=== PATIENT | female | born 1935 | race Caucasian/White ===

== ENCOUNTER 2018-05-22 12:50 | Inpatient (IN) | payer MEDICARE, OTHER ==
[~2018-05-22] VITALS: Ht 162.6 cm; Wt 74.3 kg
[~2018-05-22 12:50] MED LIST: ASPI81 PO; FOLI1 PO; LEVO500 PO; MULT-29 PO; Paroxetine Hcl PO; THIA100T67 PO
[2018-05-22] MEDS ORDERED: FAMO20 PO (13:52)
[2018-05-22] MEDS ORDERED: AMLO-512 PO (13:52)
[2018-05-22] MEDS ORDERED: DIVA125T32 PO (13:52)
[2018-05-22] MEDS ORDERED: METO25XL PO (13:52)
[2018-05-22] MEDS ORDERED: CITA10TA68 PO (13:52)
[2018-05-22] MEDS ORDERED: ATOR40TA28 PO (13:52)
[2018-05-22] MEDS ORDERED: ISOS60TA4 PO (13:52)
[2018-05-22] MEDS ORDERED: ACETAMINOPHEN 325 MG TABLET PO PRN (14:00)
[2018-05-22] MEDS ORDERED: CefTRIAXone SODIUM 1 GM in DEXTROSE 5%-WATER 10 ML IV ONE (14:00)
[2018-05-22] MEDS ORDERED: ONDANSETRON HCL 4 MG/2 ML VIAL IVP PRN ×2 (14:00→16:45)
[2018-05-22] MEDS ORDERED: 0.9% SODIUM CHLORIDE 10 ML SYRINGE IVP PRN (14:00)
[2018-05-22 15:35] LABS: CALCIUM, TOTAL 8.8 mg/dL (8.8-10.5); CREATININE 0.99 mg/dL (0.60-1.30); POTASSIUM 3.2 mmol/L (3.5-5.1)
[2018-05-22 15:41] LABS: ALBUMIN 2.6 g/dL (3.4-5.0); BILIRUBIN,TOTAL 0.5 mg/dL (0.1-1.0); TOTAL PROTEIN, SERUM 7.7 g/dL (6.4-8.2)
[2018-05-22] MEDS ORDERED: POTASSIUM CHLORIDE 10% 40 MEQ/30 ML LIQUID UDCUP PO ONE (16:00)
[2018-05-22] MEDS ORDERED: ASPIRIN 325 MG TABLET PO ONE (16:15)
[2018-05-22] MEDS ORDERED: IPRATROPIUM BROMIDE 0.5 MG/2.5 ML NEB SOLUTION NEB ONE (16:15)
[2018-05-22] MEDS ORDERED: SODIUM CHLORIDE 0.9% 1,000 ML IV ONE ×2 (16:15→16:45)
[2018-05-22] MEDS ORDERED: ALBUTEROL SULFATE 2.5 MG/0.5 ML NEB SOLUTION NEB ONE (16:15)
[2018-05-22 16:35] LABS: APPEARANCE,URINE CLOUDY (CLEAR); BILIRUBIN,URINE NEGATIVE (NEGATIVE); GLUCOSE, URINE (UA) NEGATIVE (NEGATIVE); KETONES,URINE TRACE mg/dL (NEGATIVE); LEUKOCYTE ESTERASE ,URINE NEGATIVE (NEGATIVE); NITRATE,URINE NEGATIVE (NEGATIVE); OCCULT BLOOD,URINE NEGATIVE (NEGATIVE); PROTEIN,URINE NEGATIVE (NEGATIVE)
[2018-05-22] MEDS ORDERED: ZOLPIDEM TARTRATE 5 MG TABLET PO PRN (16:45)
[2018-05-22] MEDS ORDERED: BISACODYL 10 MG RECTAL RECTAL SUPPOSITORY PR PRN (16:45)
[2018-05-22] MEDS ORDERED: MORPHINE SULFATE 2 MG/ML SYRINGE IVP PRN (16:45)
[2018-05-22] MEDS ORDERED: MAGNESIUM HYDROXIDE SUSPENSION 30 ML UDCUP PO PRN (16:45)
[2018-05-22 16:52] LABS: AMORPHOUS SEDIMENT,UR Moderate /LPF (None Seen); BACTERIA,URINE Few /HPF (None Seen); RBC,URINE 0-2 /HPF (0-2); SQUAMOUS EPITHELIAL CELL,UR Few /LPF (None Seen); WBC,URINE 0-2 /HPF (0-5)
[2018-05-22 17:16] LABS: BASOPHILS % (AUTO) 0.3 % (0.0-2.0); EOSINOPHILS % (AUTO) 1.4 % (1.0-6.0); HEMATOCRIT 32.7 % (36-46); HEMOGLOBIN 11.1 g/dL (12.0-16.0); LYMPHOCYTES % (AUTO) 20.9 % (22.0-44.0); MEAN CORPUSCULAR HEMOGLOBIN 31.2 pg (26.0-34.0); MEAN CORPUSCULAR VOLUME 92 fL (80-100); MONOCYTES # (AUTO) 1.6 K/uL (0.1-1.0); MONOCYTES % (AUTO) 16.9 % (2.0-9.0); NEUTROPHILS # (AUTO) 5.9 K/uL (1.8-7.7); NEUTROPHILS % (AUTO) 60.5 % (40.0-70.0); PLATELET COUNT (AUTO) 230 K/uL (150-450); RED BLOOD CELL COUNT(AUTO) 3.57 MIL/uL (4.00-5.20); RED CELL DISTRIBUTION WIDTH 15.3 % (11.5-14.5)
[2018-05-22 17:18] VITALS: BP 103/73
[2018-05-22] MEDS: AZITHROMYCIN 500 MG/NS 250 ML IV SCH (19:04)
[2018-05-22 19:20] VITALS: BP 101/71
[2018-05-22] MEDS: DOCUSATE SODIUM 100 MG CAPSULE PO SCH (20:14)
[2018-05-22] MEDS: THIAMINE HCL 100 MG TABLET PO SCH (20:15)
[2018-05-22] MEDS: DIVALPROEX SODIUM 125 MG DR TABLET PO SCH (20:15)
[2018-05-22] MEDS: HYDROCODONE/ACETAMINOPHEN 5-325 MG TABLET PO PRN (20:15)
[2018-05-23 00:07] VITALS: BP 96/59
[2018-05-23 04:30] VITALS: BP 110/73
[2018-05-23] MEDS: HYDROCODONE/ACETAMINOPHEN 5-325 MG TABLET PO PRN ×2 (06:10→20:39)
[2018-05-23 07:37] VITALS: BP 111/72
[2018-05-23] MEDS: THIAMINE HCL 100 MG TABLET PO SCH ×2 (07:41→20:39)
[2018-05-23] MEDS: AmLODIPine BESYLATE 10 MG TABLET PO SCH (07:41)
[2018-05-23] MEDS: HEPARIN SODIUM,PORCINE 5,000 UNITS/ML VIAL SQ SCH ×3 (07:41→16:00)
[2018-05-23] MEDS: PANTOPRAZOLE SODIUM 40 MG DR TABLET PO SCH (07:41)
[2018-05-23] MEDS: ATORVASTATIN CALCIUM 40 MG TABLET PO SCH (07:41)
[2018-05-23] MEDS: ASPIRIN 81 MG CHEWABLE TABLET PO SCH (07:41)
[2018-05-23] MEDS: CITALOPRAM HYDROBROMIDE 10 MG TABLET PO SCH (07:42)
[2018-05-23] MEDS: DIVALPROEX SODIUM 125 MG DR TABLET PO SCH ×2 (07:42→20:39)
[2018-05-23] MEDS: DOCUSATE SODIUM 100 MG CAPSULE PO SCH ×2 (07:42→20:39)
[2018-05-23] MEDS: ISOSORBIDE MONONITRATE 60 MG ER TABLET PO SCH (07:42)
[2018-05-23] MEDS ORDERED: POTASSIUM CHLORIDE 20 MEQ ER TABLET PO PRN (08:15)
[2018-05-23] MEDS ORDERED: POTASSIUM CHL 10 MEQ/WATER 50 ML IV PRN (08:15)
[2018-05-23 08:50] LABS: BASOPHILS % (AUTO) 0.3 % (0.0-2.0); EOSINOPHILS % (AUTO) 1.4 % (1.0-6.0); HEMATOCRIT 33.3 % (36-46); HEMOGLOBIN 11.3 g/dL (12.0-16.0); LYMPHOCYTES # (AUTO) 1.3 K/uL (1.0-4.8); LYMPHOCYTES % (AUTO) 12.6 % (22.0-44.0); MEAN CORPUSCULAR HEMOGLOBIN 31.4 pg (26.0-34.0); MEAN CORPUSCULAR VOLUME 92 fL (80-100); MONOCYTES # (AUTO) 1.2 K/uL (0.1-1.0); MONOCYTES % (AUTO) 12.1 % (2.0-9.0); NEUTROPHILS # (AUTO) 7.5 K/uL (1.8-7.7); NEUTROPHILS % (AUTO) 73.6 % (40.0-70.0); PLATELET COUNT (AUTO) 243 K/uL (150-450); RED BLOOD CELL COUNT(AUTO) 3.61 MIL/uL (4.00-5.20); RED CELL DISTRIBUTION WIDTH 15.3 % (11.5-14.5)
[2018-05-23] MEDS ORDERED: METOPROLOL SUCCINATE 25 MG ER TABLET PO SCH (09:00)
[2018-05-23 10:12] LABS: ANION GAP 10 mmol/L (8-16); CALCIUM, TOTAL 8.3 mg/dL (8.8-10.5); CARBON DIOXIDE 24 mmol/L (22-29); CHLORIDE 102 mmol/L (98-107); CREATININE 0.86 mg/dL (0.60-1.30); GLUCOSE,RANDOM 107 mg/dL (70-110); SODIUM SERUM 136 mmol/L (136-145); UREA NITROGEN, BLOOD 7 mg/dL (7-18)
[2018-05-23 10:15] LABS: GLOMERULAR FILTR. RATE CALC > 60 mL/min (>60)
[2018-05-23] MEDS: APIXABAN 2.5 MG TABLET PO SCH ×2 (10:57→20:39)
[2018-05-23] MEDS: METOPROLOL SUCCINATE 25 MG ER TABLET PO SCH ×2 (10:57→20:39)
[2018-05-23 11:27] VITALS: BP 98/63
[2018-05-23 15:16] VITALS: BP 117/64
[2018-05-23] MEDS: CefTRIAXone SODIUM 1 GM in DEXTROSE 5%-WATER 10 ML IV SCH (15:30)
[2018-05-23] MEDS ORDERED: ALBUTEROL SULFATE 2.5 MG/0.5 ML NEB SOLUTION NEB PRN (15:30)
[2018-05-23] MEDS ORDERED: IPRATROPIUM BROMIDE 0.5 MG/2.5 ML NEB SOLUTION NEB PRN (15:30)
[2018-05-23] MEDS ORDERED: SODIUM CHLORIDE 0.9% 250 ML IV ONE (17:07)
[2018-05-23] MEDS: AZITHROMYCIN 500 MG/NS 250 ML IV SCH (17:10)
[2018-05-23] MEDS: GuaiFENesin [SUGAR-FREE] 200 MG/10 ML SOLUTION UDCUP PO PRN (17:10)
[2018-05-23] MEDS ORDERED: GuaiFENesin [SUGAR-FREE] 200 MG/10 ML SOLUTION UDCUP PO PRN (18:00)
[2018-05-23] MEDS ORDERED: GuaiFENesin [SUGAR-FREE] 200 MG/10 ML SOLUTION UDCUP PO SCH (18:00)
[2018-05-23 19:35] VITALS: BP 131/54
[2018-05-24 00:41] VITALS: BP 130/78
[2018-05-24] MEDS: GuaiFENesin [SUGAR-FREE] 200 MG/10 ML SOLUTION UDCUP PO PRN ×4 (02:04→21:54)
[2018-05-24 06:00] VITALS: BP 129/75
[2018-05-24 06:52] LABS: BASOPHILS % (AUTO) 0.3 % (0.0-2.0); EOSINOPHILS % (AUTO) 1.6 % (1.0-6.0); HEMOGLOBIN 11.3 g/dL (12.0-16.0); LYMPHOCYTES # (AUTO) 1.6 K/uL (1.0-4.8); LYMPHOCYTES % (AUTO) 18.2 % (22.0-44.0); MEAN CORPUSCULAR HEMOGLOBIN 31.2 pg (26.0-34.0); MEAN CORPUSCULAR HGB CONC 34.1 G/dL (31.0-37.0); MEAN CORPUSCULAR VOLUME 92 fL (80-100); MONOCYTES # (AUTO) 1.3 K/uL (0.1-1.0); MONOCYTES % (AUTO) 14.9 % (2.0-9.0); NEUTROPHILS # (AUTO) 5.8 K/uL (1.8-7.7); PLATELET COUNT (AUTO) 253 K/uL (150-450); RED CELL DISTRIBUTION WIDTH 14.9 % (11.5-14.5)
[2018-05-24 07:09] LABS: ALANINE AMINOTRANSFERASE 20 U/L (12-78); ALBUMIN 2.1 g/dL (3.4-5.0); ALKALINE PHOSPHATASE 61 U/L (46-116); ANION GAP 11 mmol/L (8-16); ASPARTATE AMINOTRANSFERASE 22 U/L (15-37); BILIRUBIN,TOTAL 0.5 mg/dL (0.1-1.0); CALCIUM, TOTAL 8.3 mg/dL (8.8-10.5); CARBON DIOXIDE 24 mmol/L (22-29); CHLORIDE 102 mmol/L (98-107); CREATININE 0.79 mg/dL (0.60-1.30); GLUCOSE,RANDOM 89 mg/dL (70-110); POTASSIUM 3.7 mmol/L (3.5-5.1); SODIUM SERUM 137 mmol/L (136-145); TOTAL PROTEIN, SERUM 7.1 g/dL (6.4-8.2); UREA NITROGEN, BLOOD 5 mg/dL (7-18)
[2018-05-24 07:32] LABS: GLOMERULAR FILTR. RATE CALC > 60 mL/min (>60)
[2018-05-24] MEDS: AmLODIPine BESYLATE 10 MG TABLET PO SCH (07:32)
[2018-05-24] MEDS: METOPROLOL SUCCINATE 25 MG ER TABLET PO SCH ×2 (07:32→21:49)
[2018-05-24] MEDS: ASPIRIN 81 MG CHEWABLE TABLET PO SCH (07:32)
[2018-05-24] MEDS: ATORVASTATIN CALCIUM 40 MG TABLET PO SCH (07:32)
[2018-05-24] MEDS: HEPARIN SODIUM,PORCINE 5,000 UNITS/ML VIAL SQ SCH ×3 (07:32→16:00)
[2018-05-24] MEDS: PANTOPRAZOLE SODIUM 40 MG DR TABLET PO SCH (07:33)
[2018-05-24] MEDS: DOCUSATE SODIUM 100 MG CAPSULE PO SCH ×2 (07:33→21:49)
[2018-05-24] MEDS: ISOSORBIDE MONONITRATE 60 MG ER TABLET PO SCH (07:33)
[2018-05-24] MEDS: DIVALPROEX SODIUM 125 MG DR TABLET PO SCH ×2 (07:34→21:49)
[2018-05-24] MEDS: APIXABAN 2.5 MG TABLET PO SCH ×2 (07:34→21:49)
[2018-05-24] MEDS: CITALOPRAM HYDROBROMIDE 10 MG TABLET PO SCH (07:34)
[2018-05-24] MEDS: THIAMINE HCL 100 MG TABLET PO SCH ×2 (07:35→21:49)
[2018-05-24 07:49] VITALS: BP 134/63
[2018-05-24 11:37] VITALS: BP 99/63
[2018-05-24 16:15] VITALS: BP 110/84
[2018-05-24] MEDS: CefTRIAXone SODIUM 1 GM in DEXTROSE 5%-WATER 10 ML IV SCH (16:27)
[2018-05-24] MEDS: AZITHROMYCIN 500 MG/NS 250 ML IV SCH (16:27)
[2018-05-24 20:16] VITALS: BP 121/66
[2018-05-25 00:04] VITALS: BP 114/63
[2018-05-25] MEDS: HEPARIN SODIUM,PORCINE 5,000 UNITS/ML VIAL SQ SCH ×4 (00:12→23:43)
[2018-05-25 04:44] VITALS: BP 118/79
[2018-05-25 07:17] VITALS: BP 109/59
[2018-05-25 09:01] LABS: BASOPHILS % (AUTO) 0.4 % (0.0-2.0); EOSINOPHILS % (AUTO) 1.2 % (1.0-6.0); HEMATOCRIT 33.7 % (36-46); HEMOGLOBIN 11.5 g/dL (12.0-16.0); LYMPHOCYTES # (AUTO) 1.5 K/uL (1.0-4.8); LYMPHOCYTES % (AUTO) 16.1 % (22.0-44.0); MEAN CORPUSCULAR HEMOGLOBIN 30.9 pg (26.0-34.0); MEAN CORPUSCULAR VOLUME 91 fL (80-100); MONOCYTES # (AUTO) 1.2 K/uL (0.1-1.0); MONOCYTES % (AUTO) 12.6 % (2.0-9.0); NEUTROPHILS # (AUTO) 6.4 K/uL (1.8-7.7); NEUTROPHILS % (AUTO) 69.7 % (40.0-70.0); PLATELET COUNT (AUTO) 272 K/uL (150-450); RED BLOOD CELL COUNT(AUTO) 3.71 MIL/uL (4.00-5.20); RED CELL DISTRIBUTION WIDTH 15.3 % (11.5-14.5)
[2018-05-25 09:13] LABS: ALANINE AMINOTRANSFERASE 20 U/L (12-78); ALBUMIN 2.2 g/dL (3.4-5.0); ALKALINE PHOSPHATASE 64 U/L (46-116); ANION GAP 9 mmol/L (8-16); ASPARTATE AMINOTRANSFERASE 21 U/L (15-37); BILIRUBIN,TOTAL 0.3 mg/dL (0.1-1.0); CALCIUM, TOTAL 8.5 mg/dL (8.8-10.5); CARBON DIOXIDE 26 mmol/L (22-29); CHLORIDE 104 mmol/L (98-107); CREATININE 0.87 mg/dL (0.60-1.30); GLOMERULAR FILTR. RATE CALC > 60 mL/min (>60); GLUCOSE,RANDOM 101 mg/dL (70-110); POTASSIUM 3.8 mmol/L (3.5-5.1); SODIUM SERUM 139 mmol/L (136-145); TOTAL PROTEIN, SERUM 7.2 g/dL (6.4-8.2); UREA NITROGEN, BLOOD 6 mg/dL (7-18)
[2018-05-25] MEDS: GuaiFENesin [SUGAR-FREE] 200 MG/10 ML SOLUTION UDCUP PO PRN ×2 (09:55→21:09)
[2018-05-25] MEDS: CITALOPRAM HYDROBROMIDE 10 MG TABLET PO SCH (09:55)
[2018-05-25] MEDS: ISOSORBIDE MONONITRATE 60 MG ER TABLET PO SCH (09:55)
[2018-05-25] MEDS: DOCUSATE SODIUM 100 MG CAPSULE PO SCH ×2 (09:55→21:00)
[2018-05-25] MEDS: DIVALPROEX SODIUM 125 MG DR TABLET PO SCH ×2 (09:56→21:04)
[2018-05-25] MEDS: ATORVASTATIN CALCIUM 40 MG TABLET PO SCH (09:56)
[2018-05-25] MEDS: ASPIRIN 81 MG CHEWABLE TABLET PO SCH (09:56)
[2018-05-25] MEDS: APIXABAN 2.5 MG TABLET PO SCH ×2 (09:56→21:04)
[2018-05-25] MEDS: THIAMINE HCL 100 MG TABLET PO SCH ×2 (09:56→21:05)
[2018-05-25] MEDS: PANTOPRAZOLE SODIUM 40 MG DR TABLET PO SCH (09:56)
[2018-05-25] MEDS: METOPROLOL SUCCINATE 25 MG ER TABLET PO SCH ×2 (09:57→21:05)
[2018-05-25 11:10] VITALS: BP 106/61
[2018-05-25] MEDS: AmLODIPine BESYLATE 10 MG TABLET PO SCH (11:11)
[2018-05-25] MEDS ORDERED: SODIUM CHLORIDE 0.9% 250 ML IV ONE (14:47)
[2018-05-25] MEDS: CefTRIAXone SODIUM 1 GM in DEXTROSE 5%-WATER 10 ML IV SCH (15:00)
[2018-05-25 16:13] VITALS: BP 102/80
[2018-05-25] MEDS: AZITHROMYCIN 500 MG/NS 250 ML IV SCH (16:35)
[2018-05-25 19:13] VITALS: BP 109/76
[2018-05-26 00:22] VITALS: BP 114/68
[2018-05-26 04:17] VITALS: BP 113/70
[2018-05-26 07:52] VITALS: BP 141/81
[2018-05-26] MEDS: METOPROLOL SUCCINATE 25 MG ER TABLET PO SCH ×2 (08:47→20:48)
[2018-05-26] MEDS: AmLODIPine BESYLATE 10 MG TABLET PO SCH (08:47)
[2018-05-26] MEDS: PANTOPRAZOLE SODIUM 40 MG DR TABLET PO SCH (08:48)
[2018-05-26] MEDS: ISOSORBIDE MONONITRATE 60 MG ER TABLET PO SCH (08:48)
[2018-05-26] MEDS: DOCUSATE SODIUM 100 MG CAPSULE PO SCH ×2 (08:48→20:43)
[2018-05-26] MEDS: ATORVASTATIN CALCIUM 40 MG TABLET PO SCH (08:48)
[2018-05-26] MEDS: ASPIRIN 81 MG CHEWABLE TABLET PO SCH (08:48)
[2018-05-26] MEDS: APIXABAN 2.5 MG TABLET PO SCH ×2 (08:48→20:48)
[2018-05-26] MEDS: THIAMINE HCL 100 MG TABLET PO SCH ×2 (08:48→20:48)
[2018-05-26] MEDS: CITALOPRAM HYDROBROMIDE 10 MG TABLET PO SCH (08:48)
[2018-05-26] MEDS: DIVALPROEX SODIUM 125 MG DR TABLET PO SCH ×2 (08:49→20:48)
[2018-05-26] MEDS: HEPARIN SODIUM,PORCINE 5,000 UNITS/ML VIAL SQ SCH ×2 (08:49→15:52)
[2018-05-26 11:32] VITALS: BP 105/74
[2018-05-26] MEDS: ACETAMINOPHEN 325 MG TABLET PO PRN (13:33)
[2018-05-26] MEDS ORDERED: METOPROLOL SUCCINATE 25 MG ER TABLET PO ONE (15:15)
[2018-05-26 15:18] VITALS: BP 107/75
[2018-05-26] MEDS: CefTRIAXone SODIUM 1 GM in DEXTROSE 5%-WATER 10 ML IV SCH (15:52)
[2018-05-26] MEDS: AZITHROMYCIN 500 MG/NS 250 ML IV SCH (15:52)
[2018-05-26] MEDS: GuaiFENesin [SUGAR-FREE] 200 MG/10 ML SOLUTION UDCUP PO PRN (15:52)
[2018-05-26] MEDS: DIGOXIN 250 MCG/ML 2 ML AMP IVP SCH (17:58)
[2018-05-27] VITALS (7 sets, daily range): BP systolic 100–122; BP diastolic 54–70
[2018-05-27] MEDS: HEPARIN SODIUM,PORCINE 5,000 UNITS/ML VIAL SQ SCH ×3 (00:01→15:26)
[2018-05-27] MEDS: DIGOXIN 250 MCG/ML 2 ML AMP IVP SCH ×3 (00:01→12:40)
[2018-05-27] MEDS: GuaiFENesin [SUGAR-FREE] 200 MG/10 ML SOLUTION UDCUP PO PRN (06:00)
[2018-05-27] MEDS: DOCUSATE SODIUM 100 MG CAPSULE PO SCH ×2 (08:04→21:00)
[2018-05-27] MEDS: ASPIRIN 81 MG CHEWABLE TABLET PO SCH (08:23)
[2018-05-27] MEDS: CITALOPRAM HYDROBROMIDE 10 MG TABLET PO SCH (08:24)
[2018-05-27] MEDS: DIVALPROEX SODIUM 125 MG DR TABLET PO SCH ×2 (08:24→21:02)
[2018-05-27] MEDS: METOPROLOL SUCCINATE 25 MG ER TABLET PO SCH ×2 (08:24→20:47)
[2018-05-27] MEDS: THIAMINE HCL 100 MG TABLET PO SCH ×2 (08:24→20:48)
[2018-05-27] MEDS: PANTOPRAZOLE SODIUM 40 MG DR TABLET PO SCH (08:24)
[2018-05-27] MEDS: ATORVASTATIN CALCIUM 40 MG TABLET PO SCH (08:24)
[2018-05-27] MEDS: AmLODIPine BESYLATE 10 MG TABLET PO SCH (08:24)
[2018-05-27] MEDS: APIXABAN 2.5 MG TABLET PO SCH ×2 (08:25→20:47)
[2018-05-27] MEDS: ISOSORBIDE MONONITRATE 60 MG ER TABLET PO SCH (08:25)
[2018-05-27 09:41] LABS: ALBUMIN 2.3 g/dL (3.4-5.0); BILIRUBIN,TOTAL 0.4 mg/dL (0.1-1.0); CALCIUM, TOTAL 8.7 mg/dL (8.8-10.5); CREATININE 0.98 mg/dL (0.60-1.30); POTASSIUM 3.5 mmol/L (3.5-5.1); TOTAL PROTEIN, SERUM 7.6 g/dL (6.4-8.2)
[2018-05-27] MEDS: ACETAMINOPHEN 325 MG TABLET PO PRN ×2 (15:26→21:36)
[2018-05-27] MEDS: CefTRIAXone SODIUM 1 GM in DEXTROSE 5%-WATER 10 ML IV SCH (15:27)
[2018-05-27] MEDS: AZITHROMYCIN 500 MG/NS 250 ML IV SCH (16:41)
[2018-05-28] VITALS (7 sets, daily range): BP systolic 95–125; BP diastolic 57–73
[2018-05-28] MEDS: HEPARIN SODIUM,PORCINE 5,000 UNITS/ML VIAL SQ SCH ×3 (00:23→15:12)
[2018-05-28] MEDS: ATORVASTATIN CALCIUM 40 MG TABLET PO SCH (08:57)
[2018-05-28] MEDS: ISOSORBIDE MONONITRATE 60 MG ER TABLET PO SCH (08:57)
[2018-05-28] MEDS: AmLODIPine BESYLATE 10 MG TABLET PO SCH (08:57)
[2018-05-28] MEDS: ASPIRIN 81 MG CHEWABLE TABLET PO SCH (08:58)
[2018-05-28] MEDS: PANTOPRAZOLE SODIUM 40 MG DR TABLET PO SCH (08:58)
[2018-05-28] MEDS: THIAMINE HCL 100 MG TABLET PO SCH ×2 (08:58→20:03)
[2018-05-28] MEDS: DIVALPROEX SODIUM 125 MG DR TABLET PO SCH ×2 (08:58→20:02)
[2018-05-28] MEDS: METOPROLOL SUCCINATE 25 MG ER TABLET PO SCH ×2 (08:58→20:03)
[2018-05-28] MEDS: APIXABAN 2.5 MG TABLET PO SCH ×2 (08:58→20:02)
[2018-05-28] MEDS: CITALOPRAM HYDROBROMIDE 10 MG TABLET PO SCH (08:59)
[2018-05-28] MEDS: DOCUSATE SODIUM 100 MG CAPSULE PO SCH ×2 (09:00→20:02)
[2018-05-28] MEDS: GuaiFENesin [SUGAR-FREE] 200 MG/10 ML SOLUTION UDCUP PO PRN (15:12)
[2018-05-28] MEDS: CefTRIAXone SODIUM 1 GM in DEXTROSE 5%-WATER 10 ML IV SCH (15:13)
[2018-05-28] MEDS: AZITHROMYCIN 500 MG/NS 250 ML IV SCH (16:11)
[2018-05-28] MEDS: ACETAMINOPHEN 325 MG TABLET PO PRN (20:04)
[2018-05-29] MEDS: HEPARIN SODIUM,PORCINE 5,000 UNITS/ML VIAL SQ SCH ×2 (02:09→08:30)
[2018-05-29 04:39] VITALS: BP 117/62
[2018-05-29 07:15] VITALS: BP 123/67
[2018-05-29] MEDS: AmLODIPine BESYLATE 10 MG TABLET PO SCH (08:30)
[2018-05-29] MEDS: METOPROLOL SUCCINATE 25 MG ER TABLET PO SCH (08:30)
[2018-05-29] MEDS: ATORVASTATIN CALCIUM 40 MG TABLET PO SCH (08:30)
[2018-05-29] MEDS: DIVALPROEX SODIUM 125 MG DR TABLET PO SCH (08:30)
[2018-05-29] MEDS: PANTOPRAZOLE SODIUM 40 MG DR TABLET PO SCH (08:30)
[2018-05-29] MEDS: ASPIRIN 81 MG CHEWABLE TABLET PO SCH (08:30)
[2018-05-29] MEDS: CITALOPRAM HYDROBROMIDE 10 MG TABLET PO SCH (08:31)
[2018-05-29] MEDS: THIAMINE HCL 100 MG TABLET PO SCH (08:31)
[2018-05-29] MEDS: DOCUSATE SODIUM 100 MG CAPSULE PO SCH (08:31)
[2018-05-29] MEDS: APIXABAN 2.5 MG TABLET PO SCH (08:31)
[2018-05-29] MEDS: ISOSORBIDE MONONITRATE 60 MG ER TABLET PO SCH (08:32)
[2018-05-29] MEDS: GuaiFENesin [SUGAR-FREE] 200 MG/10 ML SOLUTION UDCUP PO PRN (08:35)
[2018-05-29] MEDS: ACETAMINOPHEN 325 MG TABLET PO PRN (11:22)
[2018-05-29 11:44] VITALS: BP 115/65
[2018-05-29 16:15] VITALS: BP 111/63
== END 2018-05-29 17:00 | DRG 193 ==
LOC: EMS 12:51 → UNDOADMIN 15:49 → 5S 15:49 → EMS 17:20
PROVIDERS: ADMIT Internal Medicine; ATTEND Internal Medicine
DX: J18.9 Pneumonia, unspecified organism (principal); J96.00 Acute respiratory failure, unspecified whether with hypoxia or hypercapnia; E87.1 Hypo-osmolality and hyponatremia; I50.30 Unspecified diastolic (congestive) heart failure; I48.92 Unspecified atrial flutter; I48.91 Unspecified atrial fibrillation; F25.9 Schizoaffective disorder, unspecified; I11.0 Hypertensive heart disease with heart failure; E87.6 Hypokalemia; D64.9 Anemia, unspecified; Z88.8 Allergy status to other drugs, medicaments and biological substances; Z91.018 Allergy to other foods
CPT/HCPCS: 51701; 83735; 87040; 87081; 93005; 93306; 96365; 99285; J0456; J0696; J1160; J1644; J2405; J7050; J7060

== ENCOUNTER 2018-09-27 14:51 | Emergency (ER) | payer MEDICARE, OTHER ==
[~2018-09-27] VITALS: Ht 160 cm; Wt 90.9 kg
[~2018-09-27 14:51] MED LIST changes: +AMLO-512 PO; +ATOR40TA28 PO; +CITA10TA68 PO; +DIVA125T32 PO; +FAMO20 PO; +ISOS60TA4 PO; -LEVO500 PO; +METO25XL PO; -MULT-29 PO; -Paroxetine Hcl PO
[2018-09-27] MEDS ORDERED: PANT40TA25 PO (15:55)
[2018-09-27] MEDS ORDERED: APIX2.5T PO (15:55)
[2018-09-27] MEDS ORDERED: LORazepam 2 MG/ML VIAL IM ONE (16:00)
[2018-09-27] MEDS ORDERED: HALOPERIDOL LACTATE 5 MG/ML VIAL IM ONE (16:00)
[2018-09-27] MEDS ORDERED: DiphenhydrAMINE HCL 50 MG/ML VIAL IM ONE (16:00)
[2018-09-27 17:45] LABS: EOSINOPHILS % (AUTO) 0.5 % (1.0-6.0); HEMATOCRIT 34.7 % (36-46); HEMOGLOBIN 11.8 g/dL (12.0-16.0); LYMPHOCYTES # (AUTO) 2.1 K/uL (1.0-4.8); MEAN CORPUSCULAR HEMOGLOBIN 32.1 pg (26.0-34.0); MEAN CORPUSCULAR HGB CONC 33.8 G/dL (31.0-37.0); MEAN CORPUSCULAR VOLUME 95 fL (80-100); MONOCYTES # (AUTO) 1.2 K/uL (0.1-1.0); MONOCYTES % (AUTO) 14.9 % (2.0-9.0); NEUTROPHILS # (AUTO) 4.6 K/uL (1.8-7.7); NEUTROPHILS % (AUTO) 57.6 % (40.0-70.0); PLATELET COUNT (AUTO) 220 K/uL (150-450); RED BLOOD CELL COUNT(AUTO) 3.66 MIL/uL (4.00-5.20); RED CELL DISTRIBUTION WIDTH 15.8 % (11.5-14.5)
[2018-09-27 18:17] LABS: ANION GAP 8 mmol/L (8-16); CALCIUM, TOTAL 9.2 mg/dL (8.8-10.5); CARBON DIOXIDE 30 mmol/L (22-29); CHLORIDE 102 mmol/L (98-107); CREATININE 1.01 mg/dL (0.60-1.30); GLOMERULAR FILTR. RATE CALC 52 mL/min (>60); GLUCOSE,RANDOM 129 mg/dL (70-110); POTASSIUM 3.7 mmol/L (3.5-5.1); SODIUM SERUM 140 mmol/L (136-145); UREA NITROGEN, BLOOD 7 mg/dL (7-18)
[2018-09-27 18:23] LABS: ALANINE AMINOTRANSFERASE 16 U/L (12-78); ALKALINE PHOSPHATASE 55 U/L (46-116); ASPARTATE AMINOTRANSFERASE 17 U/L (15-37); BILIRUBIN,TOTAL 0.3 mg/dL (0.1-1.0); TOTAL PROTEIN, SERUM 6.9 g/dL (6.4-8.2)
[2018-09-27 18:34] LABS: APPEARANCE,URINE CLOUDY (CLEAR); BILIRUBIN,URINE NEGATIVE (NEGATIVE); GLUCOSE, URINE (UA) NEGATIVE (NEGATIVE); KETONES,URINE NEGATIVE (NEGATIVE); LEUKOCYTE ESTERASE ,URINE LARGE (NEGATIVE); NITRATE,URINE NEGATIVE (NEGATIVE); OCCULT BLOOD,URINE TRACE (NEGATIVE); PH,URINE 6.5 (5.0-8.0); PROTEIN,URINE NEGATIVE (NEGATIVE); UROBILINOGEN,URINE 0.2 mg/dL (<=1.0)
[2018-09-27 18:44] LABS: AMPHET/METH SCREEN,URINE NEGATIVE (NEGATIVE); BARBITURATE SCREEN, URINE NEGATIVE (NEGATIVE); BENZODIAZEPINES SCREEN,URINE NEGATIVE (NEGATIVE); CANNABINOID SCREEN,URINE NEGATIVE (NEGATIVE); COCAINE SCREEN,URINE NEGATIVE (NEGATIVE); METHADONE SCREEN, URINE NEGATIVE (NEGATIVE); OPIATE SCREEN,URINE NEGATIVE (NEGATIVE)
[2018-09-27 18:45] LABS: RBC,URINE 0-2 /HPF (0-2); SQUAMOUS EPITHELIAL CELL,UR Few /LPF (None Seen)
[2018-09-27 18:46] LABS: BACTERIA,URINE Few /HPF (None Seen)
[2018-09-27 18:49] LABS: PHENCYCLIDINE SCREEN,URINE NEGATIVE (NEGATIVE)
[2018-09-27 22:30] VITALS: BP 117/65
== END 2018-09-27 22:30 | disposition home or self-care (01) ==
LOC: EMS 14:52
DX: F20.9 Schizophrenia, unspecified (principal); N39.0 Urinary tract infection, site not specified; I48.91 Unspecified atrial fibrillation; I10 Essential (primary) hypertension; Z88.6 Allergy status to analgesic agent; Z91.018 Allergy to other foods; Z79.82 Long term (current) use of aspirin; Z79.899 Other long term (current) drug therapy
CPT/HCPCS: 36415; 71045; 80053; 80307; 81001; 85025; 87077; 87086; 87186; 93005; 99284; G0480; 51701